=== PATIENT | male | born 1970 | race Caucasian/White ===

== ENCOUNTER 2018-01-13 16:43 | Emergency (ER) | payer OTHER ==
[2018-01-13] MEDS: SOD CHLORIDE 0.9% 1,000 ML IV (17:12)
[2018-01-13] MEDS: HYDROmorphONE 0.5 MG/0.5 ML SYG IV (17:12)
[2018-01-13] MEDS: HYDROCODONE/APAP (5/325) TAB PO (18:16)
== END 2018-01-13 19:44 | disposition home or self-care (01) ==
LOC: E/R 16:43
DX: C79.51 Secondary malignant neoplasm of bone (principal); R60.1 Generalized edema; I50.9 Heart failure, unspecified; R40.2142 Coma scale, eyes open, spontaneous, at arrival to emergency department; R40.2252 Coma scale, best verbal response, oriented, at arrival to emergency department; R40.2362 Coma scale, best motor response, obeys commands, at arrival to emergency department; Z85.038 Personal history of other malignant neoplasm of large intestine
CPT/HCPCS: 96374; 99284-25